=== PATIENT | male | born 1970 | race Two or more races ===

== ENCOUNTER 2025-04-14 23:43 | Emergency (ER) | payer OTHER ==
[~2025-04-14] VITALS: Ht 157.5 cm; Wt 73.6 kg
[2025-04-14 23:43] VITALS: BP 169/100; PULSE 90; RESP 16; TEMP 98.6; O2SAT 96
== END 2025-04-15 06:28 | disposition left against medical advice (07) ==
LOC: ER 23:43
DX: R42 Dizziness and giddiness (principal); R51.9 Headache, unspecified; Z53.21 Procedure and treatment not carried out due to patient leaving prior to being seen by health care provider
CPT/HCPCS: 82947; 82962